=== PATIENT | female | born 1985 | race Caucasian/White ===

== ENCOUNTER 2020-08-17 13:07 | Inpatient (IN) | payer BC ==
[2020-08-17 13:32] VITALS: BMI 23.0
[2020-08-17 15:09] LABS: EPI CELLS 2 /uL (0-25.1); HYALINE CASTS 0 /uL (0-3.1); PH,URINE 8.5 (5.0-8.0); URINE APPEARANCE CLEAR; URINE BACTERIA 220 /uL (0-1359); URINE BILIRUBIN NEGATIVE (NEGATIVE); URINE COLOR YELLOW; URINE GLUCOSE (UA) NEGATIVE (NEGATIVE); URINE KETONE NEGATIVE (NEGATIVE); URINE LEUK ESTERASE NEGATIVE (NEGATIVE); URINE NITRITE NEGATIVE (NEGATIVE); URINE PROTEIN NEGATIVE (NEGATIVE); URINE RBC 4 /uL (0-23.9); URINE UROBILINOGEN 0.2 mg/dL (0.2-1.0); URINE WBC 2 /uL (0-25.8)
[2020-08-17 15:57] LABS: BLOOD UREA NITROGEN 5.6 mg/dL (7-18); CALCIUM 9.4 mg/dL (8.5-10.1)
[2020-08-17 16:01] LABS: CREATININE 0.8 mg/dL (0.55-1.3)
[2020-08-17 16:02] LABS: BILIRUBIN,TOTAL 0.3 mg/dL (0.2-1); TOT PROT 8.1 g/dl (6.4-8.2)
[2020-08-17 16:03] LABS: BASO % 0.2 % (0-2.0); HEMOGLOBIN 13.3 GM/dL (10.7-15.3); LYMPH % 19.1 % (8-40); MCH 33.3 pg (25.7-33.7); MCHC 34.1 g/dl (32.0-36.0); MEAN CELL VOLUME 97.6 fl (80-96); MEAN PLT VOLUME 8.6 fl (7.5-11.1); MONO % 2.2 % (3.8-10.2); NEUT % 78.5 % (42.8-82.8); PLATELET COUNT 232 K/MM3 (134-434); RDW 13.6 % (11.6-15.6); WHITE BLOOD COUNT 6.2 K/mm3 (4.0-10.0)
[2020-08-17 16:11] LABS: INR 0.91 (0.83-1.09); PROTHROMBIN TIME (PATIENT) 11.1 SEC (9.7-13.0)
[2020-08-17 16:14] LABS: ACTIVATED PTT 31.7 SECONDS (25.2-36.5)
[2020-08-17] MEDS ORDERED: LORazepam 2 MG/ML SDV VIAL IVPUSH ONE ×2 (16:18→16:20)
[2020-08-17] MEDS ORDERED: LORazepam 1 MG TABLET PO ONE (16:21)
[2020-08-17] MEDS ORDERED: LORazepam 1 MG TABLET ONE (16:30)
[2020-08-17] MEDS ORDERED: TOPIRAMATE 25 MG TABLET PO ONE (19:13)
[2020-08-17] MEDS ORDERED: PREGABALIN 75 MG CAPSULE PO ONE (19:13)
[2020-08-17] MEDS ORDERED: diazePAM 5 MG TABLET PO ONE (19:13)
[2020-08-17] MEDS ORDERED: PREGABALIN 25 MG CAPSULE PO ONE (19:45)
[2020-08-17] MEDS ORDERED: PREGABALIN 25 MG CAPSULE ONE (19:51)
[2020-08-17] MEDS ORDERED: diazePAM 5 MG TABLET ONE (19:52)
[2020-08-17] MEDS ORDERED: TOPIRAMATE 25 MG TABLET ONE (19:52)
[2020-08-17] MEDS ORDERED: oxyCODONE HCL 5 MG TABLET PO ONE (19:55)
[2020-08-17] MEDS ORDERED: oxyCODONE HCL 5 MG TABLET PO PRN (21:17)
[2020-08-17] MEDS ORDERED: oxyCODONE HCL 5 MG TABLET ONE (22:46)
[2020-08-18] MEDS ORDERED: BUDESONIDE/FORMETEROL FUMARATE 80/4.5 mcg INHALER IH PRN (00:59)
[2020-08-18] MEDS ORDERED: ALBUTEROL SO4 HFA INHALER IH PRN (00:59)
[2020-08-18 02:17] LABS: URINE APPEARANCE CLEAR; URINE BILIRUBIN NEGATIVE (NEGATIVE); URINE COLOR YELLOW; URINE GLUCOSE (UA) NEGATIVE (NEGATIVE); URINE KETONE NEGATIVE (NEGATIVE); URINE LEUK ESTERASE NEGATIVE (NEGATIVE); URINE NITRITE NEGATIVE (NEGATIVE); URINE PROTEIN NEGATIVE (NEGATIVE); URINE UROBILINOGEN 0.2 mg/dL (0.2-1.0)
[2020-08-18] MEDS ORDERED: LIDOCAINE 5% TOPICAL PATCH TP ONE (02:18)
[2020-08-18] MEDS: SODIUM CHLORIDE 1,000 ML IV SCH (04:14)
[2020-08-18] MEDS ORDERED: LIDOCAINE 5% TOPICAL PATCH ONE (04:19)
[2020-08-18 06:00] LABS: BASO % 0.4 % (0-2.0); EOS % 0.4 % (0-4.5); HEMATOCRIT 34.6 % (32.4-45.2); HEMOGLOBIN 11.9 GM/dL (10.7-15.3); MCH 33.4 pg (25.7-33.7); MCHC 34.3 g/dl (32.0-36.0); MEAN CELL VOLUME 97.4 fl (80-96); NEUT % 50.2 % (42.8-82.8); PLATELET COUNT 198 K/MM3 (134-434); RBC 3.55 M/mm3 (3.60-5.2); RDW 13.4 % (11.6-15.6); WHITE BLOOD COUNT 8.3 K/mm3 (4.0-10.0)
[2020-08-18 06:21] LABS: CHLORIDE 102 mmol/L (98-107); SODIUM 138 mmol/L (136-145)
[2020-08-18 06:27] LABS: ALBUMIN 3.5 g/dl (3.4-5.0); ANION GAP 7 MMOL/L (8-16); CO2 29 mmol/L (21-32); MAGNESIUM 2.1 mg/dL (1.8-2.4)
[2020-08-18 06:30] LABS: CREATININE 0.8 mg/dL (0.55-1.3); PHOSPHOROUS 4.8 mg/dL (2.5-4.9); SGOT/AST 43 U/L (15-37); SGPT/ALT 66 U/L (13-61)
[2020-08-18 06:31] LABS: BILIRUBIN,TOTAL 0.6 mg/dL (0.2-1)
[2020-08-18 06:32] LABS: ALK PHOS 38 U/L (45-117)
[2020-08-18] MEDS: NEO/POLYMYX B SULF/DEXAMETH OPHTHALMIC 5ML BOTTLE OD SCH ×5 (06:47→23:20)
[2020-08-18 06:56] LABS: GLUCOSE,RANDOM 84 mg/dL (74-106)
[2020-08-18] MEDS ORDERED: diazePAM 5 MG TABLET ONE (09:05)
[2020-08-18] MEDS ORDERED: DEXAMETHASONE 4 MG TABLET (FP) ONE (09:05)
[2020-08-18] MEDS ORDERED: PREGABALIN 50 MG CAPSULE ONE (09:05)
[2020-08-18] MEDS ORDERED: ENOXAPARIN NA (PORCINE) 40 MG/0.4 ML DISP.SYRIN SQ ONE (09:06)
[2020-08-18] MEDS: ENOXAPARIN NA (PORCINE) 40 MG/0.4 ML DISP.SYRIN SQ SCH (09:42)
[2020-08-18] MEDS: PREGABALIN 50 MG CAPSULE PO SCH ×2 (09:42→23:14)
[2020-08-18] MEDS: DEXAMETHASONE 4 MG TABLET (FP) PO SCH (09:42)
[2020-08-18] MEDS: diazePAM 5 MG TABLET PO SCH ×2 (09:43→23:14)
[2020-08-18] MEDS ORDERED: BIMATOPROST OP SCH (10:00)
[2020-08-18] MEDS ORDERED: KETOROLAC TROMETHAMINE 10 MG TABLET PO SCH (10:00)
[2020-08-18] MEDS ORDERED: KETOROLAC TROMETHAMINE 10 MG TABLET PO ONE ×3 (10:42→20:30)
[2020-08-18] MEDS: KETOROLAC TROMETHAMINE 10 MG TABLET PO PRN ×2 (10:44→19:13)
[2020-08-18] MEDS: BUDESONIDE/FORMETEROL FUMARATE 80/4.5 mcg INHALER IH SCH ×2 (13:38→23:20)
[2020-08-18] MEDS ORDERED: ONDANSETRON 4 MG/2 ML VIAL ONE (13:43)
[2020-08-18] MEDS ORDERED: ONDANSETRON 4 MG/2 ML VIAL IVPUSH ONE (13:47)
[2020-08-18] MEDS ORDERED: LACTULOSE 20 GM/30 ML UDC (FOR ORAL USE ONLY) ONE (13:48)
[2020-08-18] MEDS: LACTULOSE 20 GM/30 ML UDC (FOR ORAL USE ONLY) PO PRN (14:00)
[2020-08-18] MEDS ORDERED: ACETAMINOPHEN 1000 MG/100 ML VIAL (NON FORMULARY) IVPB PRN (18:44)
[2020-08-18] MEDS ORDERED: PT OWN MED DRAWER 7, Y5N ONE (23:01)
[2020-08-18] MEDS: TOPIRAMATE 25 MG TABLET PO SCH (23:14)
[2020-08-18] MEDS: LIDOCAINE PATCH REMOVAL MC SCH (23:15)
[2020-08-19] MEDS: KETOROLAC TROMETHAMINE 10 MG TABLET PO PRN ×3 (06:08→18:56)
[2020-08-19] MEDS: NEO/POLYMYX B SULF/DEXAMETH OPHTHALMIC 5ML BOTTLE OD SCH ×5 (06:09→22:17)
[2020-08-19] MEDS: SODIUM CHLORIDE 1,000 ML IV SCH (06:11)
[2020-08-19] MEDS ORDERED: PT OWN MED DRAWER 7, Y5N ONE ×2 (07:01→13:27)
[2020-08-19 07:12] LABS: BASO % 0.3 % (0-2.0); EOS % 0.7 % (0-4.5); HEMATOCRIT 34.8 % (32.4-45.2); HEMOGLOBIN 11.7 GM/dL (10.7-15.3); MCH 33.3 pg (25.7-33.7); MCHC 33.5 g/dl (32.0-36.0); MEAN CELL VOLUME 99.4 fl (80-96); MEAN PLT VOLUME 8.4 fl (7.5-11.1); MONO % 6.8 % (3.8-10.2); NEUT % 43.2 % (42.8-82.8); PLATELET COUNT 196 K/MM3 (134-434); RDW 13.6 % (11.6-15.6); WHITE BLOOD COUNT 7.7 K/mm3 (4.0-10.0)
[2020-08-19 07:33] LABS: CALCIUM 8.4 mg/dL (8.5-10.1)
[2020-08-19 07:34] LABS: ALBUMIN 3.2 g/dl (3.4-5.0); BLOOD UREA NITROGEN 6.2 mg/dL (7-18); MAGNESIUM 2.1 mg/dL (1.8-2.4)
[2020-08-19 07:37] LABS: CREATININE 0.7 mg/dL (0.55-1.3)
[2020-08-19 07:38] LABS: BILIRUBIN,TOTAL 0.5 mg/dL (0.2-1); PHOSPHOROUS 3.7 mg/dL (2.5-4.9); TOT PROT 6.4 g/dl (6.4-8.2)
[2020-08-19] MEDS: DEXAMETHASONE 4 MG TABLET (FP) PO SCH (10:23)
[2020-08-19] MEDS: PREGABALIN 50 MG CAPSULE PO SCH ×2 (10:23→22:16)
[2020-08-19] MEDS: diazePAM 5 MG TABLET PO SCH ×2 (10:23→22:16)
[2020-08-19] MEDS: ENOXAPARIN NA (PORCINE) 40 MG/0.4 ML DISP.SYRIN SQ SCH (10:24)
[2020-08-19] MEDS: BUDESONIDE/FORMETEROL FUMARATE 80/4.5 mcg INHALER IH SCH ×2 (10:25→22:17)
[2020-08-19] MEDS: LACTULOSE 20 GM/30 ML UDC (FOR ORAL USE ONLY) PO PRN ×2 (10:26→22:17)
[2020-08-19] MEDS ORDERED: ONDANSETRON 4 MG/2 ML VIAL IVPUSH PRN (12:38)
[2020-08-19] MEDS: TOPIRAMATE 25 MG TABLET PO SCH (22:16)
[2020-08-19] MEDS: LIDOCAINE PATCH REMOVAL MC SCH (22:17)
[2020-08-20] MEDS ORDERED: PT OWN MED DRAWER 7, Y5N ONE ×4 (00:35→18:47)
[2020-08-20] MEDS: KETOROLAC TROMETHAMINE 10 MG TABLET PO PRN ×4 (00:41→19:07)
[2020-08-20] MEDS: NEO/POLYMYX B SULF/DEXAMETH OPHTHALMIC 5ML BOTTLE OD SCH ×5 (06:57→22:05)
[2020-08-20] MEDS ORDERED: ONDANSETRON 4 MG/2 ML VIAL IVPUSH PRN (09:05)
[2020-08-20] MEDS: DEXAMETHASONE 4 MG TABLET (FP) PO SCH (09:32)
[2020-08-20] MEDS: PREGABALIN 50 MG CAPSULE PO SCH ×2 (09:32→22:04)
[2020-08-20] MEDS: ENOXAPARIN NA (PORCINE) 40 MG/0.4 ML DISP.SYRIN SQ SCH (09:32)
[2020-08-20] MEDS: diazePAM 5 MG TABLET PO SCH ×2 (09:32→22:04)
[2020-08-20] MEDS: BUDESONIDE/FORMETEROL FUMARATE 80/4.5 mcg INHALER IH SCH ×2 (09:33→22:05)
[2020-08-20] MEDS: LACTULOSE 20 GM/30 ML UDC (FOR ORAL USE ONLY) PO PRN ×2 (09:33→22:05)
[2020-08-20] MEDS: ONDANSETRON 4 MG/2 ML VIAL IVPUSH PRN (16:30)
[2020-08-20] MEDS: TOPIRAMATE 25 MG TABLET PO SCH (22:04)
[2020-08-20] MEDS: LIDOCAINE PATCH REMOVAL MC SCH (22:05)
[2020-08-21] MEDS: KETOROLAC TROMETHAMINE 10 MG TABLET PO PRN ×3 (01:02→13:19)
[2020-08-21] MEDS: ONDANSETRON 4 MG/2 ML VIAL IVPUSH PRN ×2 (06:48→13:43)
[2020-08-21] MEDS: NEO/POLYMYX B SULF/DEXAMETH OPHTHALMIC 5ML BOTTLE OD SCH ×3 (06:48→13:20)
[2020-08-21] MEDS ORDERED: PT OWN MED DRAWER 7, Y5N ONE ×2 (09:38→13:12)
[2020-08-21] MEDS: PREGABALIN 50 MG CAPSULE PO SCH (10:00)
[2020-08-21] MEDS: diazePAM 5 MG TABLET PO SCH (10:00)
[2020-08-21] MEDS ORDERED: ESCITALOPRAM OXALATE 10 MG TABLET PO SCH (10:00)
[2020-08-21] MEDS: ENOXAPARIN NA (PORCINE) 40 MG/0.4 ML DISP.SYRIN SQ SCH (10:01)
[2020-08-21] MEDS: DEXAMETHASONE 4 MG TABLET (FP) PO SCH (10:01)
[2020-08-21] MEDS: BUDESONIDE/FORMETEROL FUMARATE 80/4.5 mcg INHALER IH SCH (10:02)
[2020-08-21] MEDS: LACTULOSE 20 GM/30 ML UDC (FOR ORAL USE ONLY) PO PRN (10:04)
[2020-08-21 13:50] VITALS: BP 115/65; PULSE 94; TEMP 98.3
== END 2020-08-21 18:45 | disposition home health service (06) | DRG 206 ==
LOC: JER 13:07 → JERBED 18:17 → J4S 08-18 22:01
PROVIDERS: ADMIT Hospitalist; ATTEND Internal Medicine
DX: R09.02 Hypoxemia (principal); G81.91 Hemiplegia, unspecified affecting right dominant side; F41.9 Anxiety disorder, unspecified; F45.9 Somatoform disorder, unspecified; G43.909 Migraine, unspecified, not intractable, without status migrainosus; K59.00 Constipation, unspecified; J45.909 Unspecified asthma, uncomplicated; R23.0 Cyanosis; R00.0 Tachycardia, unspecified
CPT/HCPCS: 36415; 70450-TC; 71045-TC-FY; 71275-TC; 80053; 81003; 82962; 83735; 84100; 84436; 84443; 84484; 84703; 85025; 85379; 85610; 85730; 87086; 93005; 93010; 94761; 97116-GP; 97161-GP; 99291; C9803; Q9967; U0003; U0005

== ENCOUNTER 2020-10-30 21:32 | Emergency (ER) | payer BC ==
[2020-10-30 21:50] VITALS: BMI 25.6
[2020-10-30] MEDS ORDERED: ONDANSETRON 4 MG/2 ML VIAL IVPUSH ONE (23:21)
[2020-10-30] MEDS ORDERED: ACETAMINOPHEN 325 MG TABLET (FP) PO PRN (23:21)
[2020-10-30] MEDS ORDERED: ACETAMINOPHEN 325 MG TABLET (FP) ONE (23:28)
[2020-10-30] MEDS ORDERED: ONDANSETRON 4 MG/2 ML VIAL ONE (23:28)
[2020-10-30 23:49] LABS: BASO % 0.4 % (0-2.0); EOS % 2.1 % (0-4.5); HEMATOCRIT 37.6 % (32.4-45.2); MCH 33.8 pg (25.7-33.7); MCHC 34.5 g/dl (32.0-36.0); MEAN PLT VOLUME 8.8 fl (7.5-11.1); MONO % 5.4 % (3.8-10.2); NEUT % 45.1 % (42.8-82.8); PLATELET COUNT 231 10^3/uL (134-434); RBC 3.83 M/mm3 (3.60-5.2); RDW 13.7 % (11.6-15.6); WHITE BLOOD COUNT 7.3 K/mm3 (4.0-10.0)
[2020-10-31 00:02] LABS: CHLORIDE 107 mmol/L (98-107); SODIUM 138 mmol/L (136-145)
[2020-10-31 00:04] LABS: ALBUMIN 3.4 g/dl (3.4-5.0); ANION GAP 7 MMOL/L (8-16); BLOOD UREA NITROGEN 15.2 mg/dL (7-18); CALCIUM 8.5 mg/dL (8.5-10.1); CO2 25 mmol/L (21-32); GLUCOSE,RANDOM 88 mg/dL (74-106)
[2020-10-31 00:07] LABS: SGOT/AST 38 U/L (15-37); SGPT/ALT 21 U/L (13-61)
[2020-10-31 00:08] LABS: CREATININE 0.9 mg/dL (0.55-1.3)
[2020-10-31 00:09] LABS: BILIRUBIN,TOTAL 0.2 mg/dL (0.2-1); TOT PROT 6.9 g/dl (6.4-8.2)
[2020-10-31 00:10] LABS: ALK PHOS 41 U/L (45-117)
[2020-10-31] MEDS ORDERED: IBUPROFEN 400 MG TABLET (FP) PO ONE ×2 (00:43→00:47)
[2020-10-31 02:39] VITALS: BP 97/58; PULSE 62; TEMP 98.5
[2020-10-31] MEDS ORDERED: LORazepam 0.5 MG TABLET PO ONE (04:31)
[2020-10-31] MEDS ORDERED: LORazepam 0.5 MG TABLET ONE (04:38)
== END 2020-10-31 06:11 | disposition home or self-care (01) ==
LOC: JER 21:32
PROC: 3E033GC Introduction of Other Therapeutic Substance into Peripheral Vein, Percutaneous Approach (ICD-10-PCS; principal; 2020-10-30)
DX: R07.89 Other chest pain (principal); T17.320A Food in larynx causing asphyxiation, initial encounter
CPT/HCPCS: 36415; 71045-TC-FY; 71275-TC; 80053; 84484; 85025; 85379; 93005; 93010; 99285-25

== ENCOUNTER → 2021-09-15 | Emergency (ER) | payer BC ==
[2021-09-15 15:40] VITALS: BP 119/77; PULSE 103; TEMP 98.7; BMI 27.9
== END ==
LOC: JER 14:49
DX: R00.8 Other abnormalities of heart beat (principal)
CPT/HCPCS: 93005; 93010; 99283-25